=== PATIENT | male | born 1985 | race Caucasian/White ===

== ENCOUNTER 2016-12-08 20:43 | Emergency (ER) | payer BC ==
[~2016-12-08] VITALS: Ht 190.5 cm; Wt 165.6 kg
[2016-12-08] MEDS ORDERED: [UNRECOGNIZED DRUG - REMARK] OU (21:06)
[2016-12-08] MEDS ORDERED: CEPH500C PO (21:06)
[2016-12-08] MEDS ORDERED: NAPR500T2 PO (21:06)
[2016-12-08] MEDS ORDERED: LEVO300T3 PO (21:06)
[2016-12-08] MEDS ORDERED: ADACEL/BOOSTRIX VACCINE (DIPHTH/PERTUSS/ACELL/TETANUS)0.5ML SYR (90715) IM ONE (22:30)
[2016-12-08 22:35] VITALS: BP 144/89
== END 2016-12-08 23:03 | disposition home or self-care (01) ==
LOC: M ED 22:09
DX: S00.85XA Superficial foreign body of other part of head, initial encounter (principal); W20.8XXA Other cause of strike by thrown, projected or falling object, initial encounter; Y92.89 Other specified places as the place of occurrence of the external cause; Y93.89 Activity, other specified; Y99.8 Other external cause status; L02.415 Cutaneous abscess of right lower limb; Z79.899 Other long term (current) drug therapy; Z88.2 Allergy status to sulfonamides; Z79.2 Long term (current) use of antibiotics; Z88.1 Allergy status to other antibiotic agents